=== PATIENT | male | born 1970 | race Caucasian/White ===

== ENCOUNTER → 2017-09-05 | Outpatient (CLI) | payer OTHER ==
[~2017-09-05] MED LIST: ACET-24 PO; ACET1TAB84 PO; ACETAMINOPHEN 500 MG TAB PO SCH; ALL300 PO; AMLO-110 PO; BUPIVACAINE 0.5 % 5 MG/1 ML PF 10ML VIAL ONE; CALC600T37 PO; CEFAZOLIN 3000MG IV PUSH 22.5 ML IV SCH; CHECK SCOPOLAMINE PATCH PLACEMENT SCH; CHOL20007 PO; CYAN10005 PO; FAMOTIDINE 20 MG TAB PO SCH; FRRG PO; GABAPENTIN 900 MG PO SCH; INDO-22 PO; LACTATED RINGER'S 1000ML 1,000 ML IV SCH; LACTATED RINGER'S 1000ML 500 ML IV SCH; LACTATED RINGER'S 1000ML IV SCH; METOCLOPRAMIDE HCL 10 MG TAB PO SCH; MULT-1027 PO; NXM/40 PO; PEDI-68 PO; RXC5 PO; SCOPOLAMINE 1.5 MG TDSY TD SCH; TRAM-10 PO; XRL10 PO
[2017-09-05 09:39] VITALS: BMI 31.0
--- NOTE | 2017-09-05 10:54 | DIAGNOSTIC IMAGING REPORT ---
TWO VIEW CHEST CLINICAL HISTORY: Preoperative examination. FINDINGS: PA and lateral chest radiographs are obtained. No prior studies are available for comparison at the time of dictation. The cardiomediastinal silhouette is unremarkable. The lungs and pleural spaces are clear. There is no pneumothorax. The bony thorax appears intact. IMPRESSION: No active disease in the chest. Electronically signed by: Ankit Hoyos M.D. 09/05/2017 10:53 AM Dictated Date/Time: 09/05/2017 10:53 AM
[2017-09-05 12:09] LABS: BASO % 0.5 %; BASO ABS # 0.03 K/uL (0-0.2); EOS % 2.6 %; EOS ABS # 0.15 K/uL (0-0.5); HEMATOCRIT 45.1 % (42-52); HEMOGLOBIN 15.3 g/dL (14.0-18.0); IG# 0.01 K/uL (0.00-0.02); LYMPH % 30.2 %; LYMPH ABS # 1.75 K/uL (1.2-3.4); MEAN CELL VOLUME 92.6 fL (80-100); MEAN CORPUSCULAR HEMOGLOBIN 31.4 pg (25-34); MEAN CORPUSCULAR HGB CONC 33.9 g/dl (32-36); MEAN PLATELET VOLUME 12.4 fL (7.4-10.4); MONO ABS # 0.35 K/uL (0.11-0.59); NEUT % 60.5 %; NEUT ABS # 3.51 K/uL (1.4-6.5); PLATELET COUNT 165 K/uL (130-400); RED CELL DISTRIBUTION WIDTH CV 13.7 % (11.5-14.5); RED CELL DISTRIBUTION WIDTH SD 46.7 fL (36.4-46.3)
[2017-09-05 12:16] LABS: BLOOD UREA NITROGEN 16 mg/dl (7-18); CALCIUM 9.4 mg/dl (8.5-10.1); CARBON DIOXIDE 29 mmol/L (21-32); CREATININE 1.03 mg/dl (0.60-1.40); GLUCOSE 85 mg/dl (70-99); POTASSIUM 4.6 mmol/L (3.5-5.1); SODIUM 141 mmol/L (136-145)
[2017-09-05 12:18] LABS: INR 1.1 (0.9-1.1); PTT PATIENT 27.3 SECONDS (21.0-31.0)
== END | disposition home or self-care (01) ==
LOC: C.LAB 08:00 → EDSTATUS 10-04 10:51
PROVIDERS: ATTEND Orthopaedic Surgery Sports Medicine
DX: Z01.810 Encounter for preprocedural cardiovascular examination (principal); Z01.811 Encounter for preprocedural respiratory examination; Z01.812 Encounter for preprocedural laboratory examination; R00.1 Bradycardia, unspecified

== ENCOUNTER 2017-10-04 10:24 | Inpatient (IN) | payer OTHER ==
[2017-09-05 09:39] VITALS: BMI 31.0
--- NOTE | 2017-09-05 10:10 | PAT Medication Instructions ---
Service Date Sep 05, 2017. Current Home Medication List Acetaminophen (Tylenol Arthritis Ext Rel), 2 TAB PO BID PRN for Pain Allopurinol (Allopurinol), 1 TAB PO QAM Amlodipine (Norvasc), 5 MG PO QAM Calcium (Calcium), 1 TAB PO BID Cholecalciferol (Vitamin D3), 1 TAB PO HS Cyanocobalamin (Vitamin B-12), 1,000 MCG PO QAM Esomeprazole Magnesium (Nexium), 40 MG PO QAM Multiple Vitamin (Multi Vitamin), 1 TAB PO QAM Tramadol (Ultram), 100 MG PO BID PRN for Pain Medication Instructions For Your Scheduled Surgery - Hold the following medications the morning of surgery: Cyanocobalamin (Vitamin B-12), 1,000 MCG PO QAM Multiple Vitamin (Multi Vitamin), 1 TAB PO QAM Calcium (Calcium), 1 TAB PO BID - Take the following medications the morning of surgery with a sip of water: Esomeprazole Magnesium (Nexium), 40 MG PO QAM Acetaminophen (Tylenol Arthritis Ext Rel), 2 TAB PO BID PRN for Pain (if needed , can be taken up to four hours before surgery) Allopurinol (Allopurinol), 1 TAB PO QAM Amlodipine (Norvasc), 5 MG PO QAM Tramadol (Ultram), 100 MG PO BID PRN for Pain (if needed, can be taken up to four hours before surgery) - Take the following medications as scheduled the night before surgery: Calcium (Calcium), 1 TAB PO BID Cholecalciferol (Vitamin D3), 1 TAB PO HS Tramadol (Ultram), 100 MG PO BID PRN for Pain (if needed, can be taken up to four hours before surgery) Acetaminophen (Tylenol Arthritis Ext Rel), 2 TAB PO BID PRN for Pain (if needed , can be taken up to four hours before surgery) If you have any questions please call us at [phone] or [phone] or [phone]
--- NOTE | 2017-10-01 19:11 | HISTORY & PHYSICAL EXAMINATION ---
DATE OF ADMISSION: 10/04/2017 CHIEF COMPLAINT: Bilateral hip pain, left side greater than right. 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 He has got a long history of bilateral hip pain and discomfort, left side greater than right. He has been through extensive conservative treatment including intraarticular hip joint injection. He used to be an obese gentleman, weighing 400+ pounds, but had gastric bypass surgery and has lost at least 100 pounds. He has continued to be debilitated by his hip pain and discomfort. His walking tolerance is limited. He cannot put his shoes and socks on. He limps with every step. The more he walks, the more he hurts. HE CANNOT TAKE NSAIDS DUE TO HIS GASTRIC BYPASS SURGERY. He has been actually taking Percocet and tramadol and controlling the pain. He would now like to proceed with surgical treatment. PAST MEDICAL HISTORY: 1. Diabetes. 2. Hypertension. 3. Elevated cholesterol. 4. Peptic ulcer disease. 5. Obesity, status post gastric bypass surgery with current BMI of 32. 6. Sleep apnea with CPAP machine. 7. Low back pain, status post 2 back surgeries. 8. Gastroesophageal reflux disease. 9. Gout. PREVIOUS SURGERIES: Include: 1. Gastric bypass surgery 5 months ago. 2. Back surgery x2. ALLERGIES: PENICILLIN. CURRENT MEDICINES: Include: 1. Norvasc 5 mg. 2. Percocet twice a day. 3. Nexium 40 mg. 4. Celexa 40 mg. 5. Tramadol 50 mg twice a day. 6. Allopurinol once a day. 7. Multivitamin. 8. Vitamin D3. 9. Vitamin B12. 10. Calcium. SOCIAL HISTORY: A 46-year-old male patient from [place]. 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 FAMILY HISTORY: Significant for diabetes, prostate cancer, leukemia. REVIEW OF SYSTEMS: Significant for diabetes. He has lost 150 pounds over the past year and a half. No chest pain or shortness of breath. No history of DVT or PE. No known clotting disorders. PHYSICAL EXAMINATION: GENERAL: Reveals a pleasant, healthy-appearing male. Looks to be in relatively good health. HEENT: Benign. NECK: Supple. No lymphadenopathy. LUNGS: Clear to auscultation. HEART: Has a regular rate and rhythm. ABDOMEN: Soft, nontender, nondistended. EXTREMITIES: Grossly neurovascularly intact except as follows: Examination of the left leg reveals the patient walks with an antalgic limp. Clearly limps on his left side. Leg lengths clinically look pretty equal but they are pretty stiff with some flexion contracture which makes leg length assessment a bit difficult. Hip is very stiff with internal rotation to -20 degrees, external rotation contracture. He cannot flex his hip to 90 degrees. He is neurologically intact. X-RAYS: X-rays of the left hip reveal advanced DJD. He has got complete loss of his joint space. He has got extensive osteophytes around the femoral head and acetabulum. Bone density looks good. ASSESSMENT: A 46-year-old male, previously morbidly obese, status post gastric bypass surgery, with advanced bilateral hip degenerative joint disease, left side worse than right. He has failed conservative treatment and would like to have his left hip replaced. PLAN: We are going to take him to the operating room and do left total hip replacement. The risks and benefits of this procedure were explained to the patient including but not limited to DVT, PE, , infection, neurologic injury, vascular injury, bleeding problem, pain, limited range of motion, stiffness, failure to relieve symptoms, incomplete relief of symptoms, need for further surgery in the future, fracture, leg length inequality, nerve palsy, dislocation, need for revision surgery, etc. The patient understands and desires to proceed. Informed consent was obtained. He knows that this is young age, this might wear out over time, might need to be redone. THE PATIENT CANNOT TAKE NSAIDS OR ASPIRIN. For DVT prophylaxis, we will likely use Xarelto. We did try and talk about limiting his narcotic use before surgery. He should be able to be discharged to home using [facility] home health program.
[2017-10-04] VITALS (13 sets, daily range): BP systolic 98–134; BP diastolic 62–86; PULSE 50–100; TEMP 36.4–36.8; O2SAT 97–100; Ht 198.1 cm; Wt 124.7 kg
[~2017-10-04] VITALS: Ht 198.1 cm; Wt 124.7 kg
[~2017-10-04 10:24] MED LIST changes: -ACET-24 PO; +ATROPINE SULFATE 0.1 MG/ML 5ML SYR IV PRN; -BUPIVACAINE 0.5 % 5 MG/1 ML PF 10ML VIAL ONE; -CHECK SCOPOLAMINE PATCH PLACEMENT SCH; +EpHEDrine SULFATE INJ 50 MG/ML AMP IV PRN; -FRRG PO; +HYDROmorphone INJ 2 MG/ML SYR/VIAL IV PRN; -INDO-22 PO; -LACTATED RINGER'S 1000ML 1,000 ML IV SCH; -LACTATED RINGER'S 1000ML 500 ML IV SCH; -LACTATED RINGER'S 1000ML IV SCH; +ONDANSETRON INJ 2 MG/ML 2 ML VIAL IV PRN; -PEDI-68 PO; +PHENYLEPHRINE 100MCG/ML 5ML SYR IV PRN; -RXC5 PO; -XRL10 PO
[2017-10-04] MEDS ORDERED: ONDANSETRON INJ 2 MG/ML 2 ML VIAL IV PRN ×3 (10:45→17:45)
[2017-10-04] MEDS ORDERED: ATROPINE SULFATE 0.1 MG/ML 5ML SYR IV PRN (10:46)
[2017-10-04] MEDS ORDERED: EpHEDrine SULFATE INJ 50 MG/ML AMP IV PRN ×2 (10:50→17:45)
[2017-10-04] MEDS ORDERED: HYDROmorphone INJ 2 MG/ML SYR/VIAL IV PRN (10:50)
[2017-10-04] MEDS ORDERED: PHENYLEPHRINE 100MCG/ML 5ML SYR IV PRN (10:50)
--- NOTE | 2017-10-04 11:14 | History & Physical Bridge Note ---
H&P Re-Evaluation Bridge Note: I have examined the patient, reviewed the History & Physical and in the interval since the performance of the History & Physical I have noted the following changes of clinical significance: No changes noted
[2017-10-04] MEDS ORDERED: LACTATED RINGER'S 1000ML IV SCH (11:30)
[2017-10-04] MEDS ORDERED: LACTATED RINGER'S 1000ML 1,000 ML IV SCH (11:30)
[2017-10-04] MEDS ORDERED: LACTATED RINGER'S 1000ML 500 ML IV SCH (11:45)
[2017-10-04] MEDS ORDERED: MIDAZOLAM HCL 1 MG/ML 2ML VIAL ONE ×3 (12:27→12:59)
[2017-10-04] MEDS ORDERED: MoRPHine SULFATE PF 1 MG/ML 10 ML AMP/VIAL ONE (12:59)
[2017-10-04] MEDS ORDERED: BACITRACIN 50000 UNIT VIAL ONE (13:06)
[2017-10-04] MEDS ORDERED: BUPIVACAINE/EPINEPHRINE 0.5% MPF 1:200,000 30 ML VIAL ONE (13:06)
[2017-10-04] MEDS ORDERED: ONDANSETRON INJ 2 MG/ML 2 ML VIAL ONE (14:02)
[2017-10-04] MEDS ORDERED: LIDOCAINE HCL 2% 2 ML VIAL (20MG/ML) ONE (14:02)
[2017-10-04] MEDS ORDERED: PROPOFOL IV EMULSION 10 MG/ML 20 ML VIAL IV ONE (14:06)
[2017-10-04] MEDS ORDERED: EpHEDrine SULFATE 50MG/5ML SYR ONE (15:10)
--- NOTE | 2017-10-04 15:21 | [facility] Post Operative Brief Note ---
Immediate Operative Summary Operative Date Oct 04, 2017. Pre-Operative Diagnosis Degenerative Joint Disease, Left Hip Post-Operative Diagnosis same as pre-operative Procedure(s) Performed Left Total Hip Arthroplasty, uncemented Surgeon Dr. Tejinder Gamez Tobacco Dipper Surgeon(s) Chris Last PA-C Estimated Blood Loss 300mL Findings Consistent with Post-Op Diagnosis Fluids (cc crystalloids) 1900 cc Specimens Permanent: A. Left Femoral Head Drains None Anesthesia Type Spinal MAC Complication(s) none Disposition Accompanied Pt To Recover: yes Disposition: Recovery Room / PACU
[2017-10-04] MEDS ORDERED: SILVER SULFADIAZINE 1% CR 50 GM JAR EXT PRN (15:30)
[2017-10-04] MEDS ORDERED: ZOLPIDEM TARTRATE 5 MG TAB PO PRN (15:30)
[2017-10-04] MEDS ORDERED: DiphenhydrAMINE HCL 50 MG/ML VIAL IV PRN ×2 (15:30→17:45)
[2017-10-04] MEDS ORDERED: METOCLOPRAMIDE HCL INJ 5 MG/ML 2 ML VIAL IV PRN (15:30)
[2017-10-04] MEDS ORDERED: MAGNESIUM HYDROXIDE SUSP 30 ML UDC PO PRN (15:30)
[2017-10-04] MEDS ORDERED: ALUMINUM/MAGNESIUM/SIMETH (MAALOX MAX) 30 ML UDC PO PRN (15:30)
[2017-10-04] MEDS ORDERED: OXYCODONE HCL IR 5 MG TAB (IMMEDIATE RELEASE) PO PRN (15:30)
[2017-10-04] MEDS ORDERED: BISACODYL 10 MG SUPP PR PRN (15:30)
[2017-10-04] MEDS ORDERED: MoRPHine SULFATE 2 MG/ML CARP IV PRN ×2 (15:30→17:45)
[2017-10-04] MEDS ORDERED: TAMSULOSIN HCL 0.4 MG CAP PO PRN (15:30)
--- NOTE | 2017-10-04 15:46 | Anesthesiology Progress Note ---
Anesthesia Post Op Note Date & Time Oct 04, 2017 at 15:46 Vital Signs Pain Intensity: 0 Vital Signs Past 12 Hours Date Time Temp Pulse Resp B/P (MAP) Pulse Ox O2 Delivery O2 Flow Rate FiO2 10/04/17 15:40 69 16 114/70 100 Nasal Cannula 2 10/04/17 15:30 51 16 113/72 100 Nasal Cannula 2 10/04/17 15:23 36.8 55 16 118/70 100 Oxymask 5 10/04/17 10:57 36.7 64 18 134/86 97 Room Air Notes Mental Status: alert / awake / arousable, participated in evaluation Pt Amnestic to Procedure: Yes Nausea / Vomiting: adequately controlled Pain: adequately controlled Airway Patency, RR, SpO2: stable & adequate BP & HR: stable & adequate Hydration State: stable & adequate Neuraxial Anesthesia: was administered, sensory block is resolving Anesthetic Complications: no major complications apparent
--- NOTE | 2017-10-04 15:59 | DIAGNOSTIC IMAGING REPORT ---
AP PELVIS AND LEFT HIP 4 VIEWS CLINICAL HISTORY: Postop hip arthroplasty COMPARISON STUDY: Outside radiograph dated 04/28/2017 FINDINGS: There are postsurgical changes of a total left hip arthroplasty. There is no dislocation. There are no acute fractures. There is air within the soft tissues consistent with recent surgery. Overlying skin zeinab are visualized. IMPRESSION: Postsurgical changes of a total left hip arthroplasty Electronically signed by: Forrest Mcneil M.D. 10/04/2017 3:58 PM Dictated Date/Time: 10/04/2017 3:57 PM
[2017-10-04] MEDS: CHECK SCOPOLAMINE PATCH PLACEMENT SCH (16:00)
[2017-10-04] MEDS ORDERED: NALOXONE HCL INJ 1 MG in SODIUM CHLORIDE 0.9% 1000ML 1,000 ML IV PRN (17:37)
[2017-10-04] MEDS ORDERED: LACTATED RINGER'S 1000ML 500 ML IV PRN (17:37)
[2017-10-04] MEDS ORDERED: NALOXONE HCL INJ 0.08 MG in SYRINGE 1.8 ML IV PRN (17:37)
[2017-10-04] MEDS ORDERED: SODIUM CHLORIDE 0.9% 1000ML 1,000 ML IV PRN (17:37)
[2017-10-04] MEDS ORDERED: NALOXONE HCL 0.4 MG/1 ML VIAL/CARP IV PRN (17:45)
[2017-10-04] MEDS ORDERED: NO NARCOTICS OR SEDATIVES SCH (17:45)
[2017-10-04] MEDS ORDERED: MoRPHine SULFATE PF 1 MG/ML 10 ML AMP/VIAL INT SPINAL PRN (17:45)
[2017-10-04] MEDS ORDERED: MEPERIDINE HCL 25 MG/ML CARP IV PRN (17:45)
[2017-10-04] MEDS ORDERED: NALBUPHINE HCL INJ 10 MG/ML AMP IV PRN (17:45)
--- NOTE | 2017-10-04 17:45 | PROGRESS NOTE ---
DATE: 10/04/2017 SUBJECTIVE: This is a 47-year-old gentleman postop from a left total hip replacement. He is doing well. Not having any pain yet. No chest pain or shortness of breath. Not feeling dizzy or lightheaded. OBJECTIVE: VITAL SIGNS: Temperature 36.4. Vital signs stable. GENERAL: Reveals a healthy, pleasant, middle-aged male. He is sitting up in bed, looks completely comfortable. He is talking to his family. LUNGS: Clear to auscultation. HEART: Regular rate and rhythm. ABDOMEN: Soft, nontender, nondistended. EXTREMITIES: Grossly neurovascularly intact except as follows: Examination of the left lower extremity reveals the leg to be well aligned. Hip is located. He can dorsiflex and plantarflex his foot appropriately. He is neurologically intact. IMAGING DATA: X-ray of left hip from recovery room reviewed. Shows left uncemented total hip arthroplasty. Components are in good position. No signs of problems. ASSESSMENT: A 47-year-old gentleman postoperative from a left total hip replacement, doing well. He had extensive excess bone formed. He is doing well. Hip is located. He is neurologically intact. PLAN: 1. DVT prophylaxis including thigh-high TEDs, SCDs, and Xarelto as he cannot take aspirin. 2. PT/OT. Weightbear as tolerated. Left total hip protocol. 3. Pain control, doing well with current pain regimen. 4. IV antibiotics x24 hours. 5. A heterotopic bone ossification prophylaxis. We are going to try and put him on some Toradol initially and then Indocin for 4-6 weeks. If he gets any stomach discomfort, he will let us know and will stop this. I know there is a risk from the GI standpoint, but I think the benefits outweigh the risks at this point. At his young age, I think he can likely tolerate it for a brief period of time. I discussed this with him and he agrees. 6. Disposition: Plan to discharge to home with home health once adequately recovered. ELIZABETH
[2017-10-04] MEDS: D5W AND 1/2NSS + 20MEQ KCL 1,000 ML IV SCH (18:05)
--- NOTE | 2017-10-04 18:09 | OPERATIVE REPORT ---
DATE OF OPERATION: 10/04/2017 SURGEON: Tejinder Gamez MD DIRECTOR OF INSTITUTIONAL SALES: VERN Hinojosa PREOPERATIVE DIAGNOSIS: Advanced left hip degenerative joint disease. POSTOPERATIVE DIAGNOSIS: Same. PROCEDURE PERFORMED: Left ceramic on highly cross-linked polyethylene uncemented total hip arthroplasty. COMPLICATIONS: None. ESTIMATED BLOOD LOSS: 300 mL. FLUID REPLACEMENT: 1900 mL crystalloid fluid replacement. ANESTHESIA: Spinal. DRAINS: None. SPECIMENS: Left femoral head sent for pathology. Also, multiple loose bodies sent for pathology. OPERATIVE INDICATIONS: The patient is a 47-year-old gentleman who has had a long history of bilateral hip pain and discomfort, left side a bit worse than right. He has been through extensive conservative treatment without relief. Over the years, he developed a marked stiffness in both hips to the point where he cannot put his shoes and socks on. He had a significant flexion and abduction contractures and external rotation contracture of his hip. X-rays showed advanced hip DJD with destruction of the femoral head and flattening of the femoral head, as well as excessive extra bone formed. The patient elected to proceed with operative treatment. Of note, the patient was in the past quite obese, but had recent gastric bypass surgery and lost alot of weight. OPERATIVE FINDINGS: Operative findings revealed extensive diffuse grade 4 changes of the femoral head and acetabulum. He had a very oblong appearance of the femoral head and no longer spherical. He had large osteophytes around the acetabulum, both medially, anteriorly and posteriorly as well as around the femoral head. He had extremely stiff hip with external rotation contracture of at least 15-20 degrees. He had multiple loose bodies throughout the hip joint as well which were removed. OPERATIVE IMPLANTS: Operative implants consists of: 1. A Biomet G7 size 58-mm acetabular shell. 2. A 6.5 cancellous acetabular screws, 1 at 35 mm length and 125 mm length. 3. An apex hole eliminator. 4. A Biomet vitamin E enriched highly cross-linked polyethylene liner with 58 mm outer diameter, 36 inner diameter. 5. A DePuy size 13.5 large stature high offset femoral stem. 6. A +5/36 mm ceramic articular ball. OPERATIVE PROCEDURE: The patient taken to the operating room, identified and was placed in the operating table in supine position. All contact areas were appropriately padded. IV antibiotics were provided by the anesthesia team. A spinal anesthetic had been implemented in the holding area. Cornejo catheter was placed in sterile fashion. The patient was then placed in the right lateral decubitus position. An axillary roll was placed. Stlberg hip positioner was used for positioning. Left hip and leg were then prepped and draped in usual sterile fashion. A posterolateral approach to the left hip was then performed through a curvilinear incision centered over the greater trochanter. Sharp dissection was carried through subcutaneous tissue down to the level of the IT band and gluteal fascia. The IT band and gluteal fascia were then incised longitudinally in line with the skin incision. The underlying greater trochanteric bursa was excised. The piriformis and external rotators were tagged and taken off the posterior aspect of the hip joint. Great care was taken throughout the procedure to protect the sciatic nerve at all times. I then released the posterior capsule. This was quite difficult with external rotation contracture, but we very carefully released the posterior capsule off the posterior aspect of the hip joint. Hip was then internally rotated and dislocated. Femoral neck osteotomy cut was made with final cut 15 mm above the lesser trochanter. Femoral head was removed and sent for pathology. The femur was retracted anteriorly. I did have to release some of the anterior capsular structures in order to mobilize the hip anteriorly. The pulvinar fat was excised. The labrum was excised. Attention was then drawn to the acetabulum. Sequential reaming of the acetabulum was then performed using a size 51 and progressing up to a 57. A 58 mm G7 acetabular shell was then placed in about 40 degrees of lateral opening and 20 degrees of anteversion. It was fixed with two 6.5 cancellous acetabular screws. Some large osteophytes anterior, posterior and inferior were removed. These were very large osteophytes. A trial liner was placed. Attention was then drawn to the femur. The proximal femur was entered with followed by canal finder and lateralizing reamer. Sequential reaming of the femur was a 4 medial size, 9 and progressing up to 13. We got pretty good chatter at 13. I broached to a size 10.5 small broach and progressing up to a 13.5 large broach. We then trialed the hip. Clearly, he needed additional offset trough medialization of the cup. We trialed the hip and the +5 articular ball, seemed to recreate leg lengths are pretty equal and it was fully stable in full extension and external rotation and flexion to 90 degrees, internal rotation to 50+ degrees. We elected to place these implants. All trial implants were removed. An apex hole eliminator was placed. A vitamin E enriched highly cross-linked polyethylene liner was placed. A +5/36 mm ceramic articular ball was placed into hip. Hip was located and once again found to be stable. Attention was then drawn toward closing. The wound was irrigated with copious amounts of pulsatile lavage solution. I did inject locally with 60 mL of 0.5% Marcaine with epinephrine. The posterior capsule and external rotators were then repaired through drill holes in the posterior trochanter. The IT band and gluteal fascia were then closed with #1 PDS suture in running fashion and subcutaneous tissues then closed with 2 layers, the deep layer #1 Vicryl suture and subcutaneous tissues with 2-0 Dexon suture in a buried interrupted fashion. The skin was then closed with skin zeinab. Leg was then cleaned and dried and a sterile dressing of Xeroform, 4 x 4, sterile ABD pad and foam tape was applied. The patient did receive some Toradol at the end of the case for a heterotopic bone prophylaxis. The patient then transferred to the recovery room in stable condition. The patient tolerated this well with no complications. All needle and sponge counts were correct at the end of the operation. I attest to the content of the Intraoperative Record and any orders documented therein. Any exceptions are noted below. ENRIQUED
[2017-10-04] MEDS: KETOROLAC TROMETHAMINE 30 MG/ML VIAL IV. SCH (19:14)
[2017-10-04] MEDS: ACETAMINOPHEN 500 MG TAB PO SCH (19:14)
[2017-10-04] MEDS: FERROUS GLUCONATE 324 MG TAB PO SCH (19:14)
[2017-10-04] MEDS ORDERED: CEFAZOLIN IV 2,000 MG in DEXTROSE 5% 50ML 50 ML IV SCH (21:30)
[2017-10-04] MEDS ORDERED: TRANEXAMIC ACID INJ 1,000 MG in SODIUM CHLORIDE 0.9% 100ML 100 ML IV ONE (21:30)
[2017-10-04] MEDS: CALCIUM 600MG + VIT D 400 IU TAB PO SCH (21:45)
[2017-10-04] MEDS: CHOLECALCIFEROL 1000 INTER.UNIT TAB PO SCH (21:45)
[2017-10-04] MEDS: DOCUSATE SODIUM 100 MG CAP PO SCH (21:45)
[2017-10-04] MEDS: CEFAZOLIN IV 2,000 MG in SYRINGE 0 ML IV SCH (21:45)
[2017-10-04] MEDS: SENNA 8.6 MG TAB PO SCH (21:45)
[2017-10-05] VITALS (17 sets, daily range): BP systolic 77–114; BP diastolic 44–72; PULSE 60–115; TEMP 36.5–36.9; O2SAT 97–100
[2017-10-05] MEDS: CHECK SCOPOLAMINE PATCH PLACEMENT SCH ×3 (00:08→15:40)
[2017-10-05] MEDS: D5W AND 1/2NSS + 20MEQ KCL 1,000 ML IV SCH ×3 (00:09→12:18)
[2017-10-05] MEDS: KETOROLAC TROMETHAMINE 30 MG/ML VIAL IV. SCH ×4 (00:09→17:38)
[2017-10-05] MEDS: ACETAMINOPHEN 500 MG TAB PO SCH ×3 (04:30→21:11)
[2017-10-05] MEDS: CEFAZOLIN IV 2,000 MG in SYRINGE 0 ML IV SCH (05:59)
[2017-10-05 06:23] LABS: BASO % 0.2 %; BASO ABS # 0.01 K/uL (0-0.2); EOS % 0.5 %; EOS ABS # 0.03 K/uL (0-0.5); HEMATOCRIT 32.9 % (42-52); HEMOGLOBIN 11.2 g/dL (14.0-18.0); IG# 0.01 K/uL (0.00-0.02); LYMPH ABS # 0.71 K/uL (1.2-3.4); MEAN CELL VOLUME 91.4 fL (80-100); MEAN CORPUSCULAR HEMOGLOBIN 31.1 pg (25-34); MONO % 8.8 %; MONO ABS # 0.48 K/uL (0.11-0.59); NEUT % 77.3 %; NEUT ABS # 4.23 K/uL (1.4-6.5); PLATELET COUNT 128 K/uL (130-400); RED CELL DISTRIBUTION WIDTH CV 13.7 % (11.5-14.5); RED CELL DISTRIBUTION WIDTH SD 45.2 fL (36.4-46.3); WHITE BLOOD COUNT 5.47 K/uL (4.8-10.8)
[2017-10-05] MEDS ORDERED: RXC5 PO (06:47)
[2017-10-05] MEDS ORDERED: ACET-24 PO (06:47)
[2017-10-05] MEDS ORDERED: XRL10 PO (06:47)
[2017-10-05] MEDS ORDERED: INDO-22 PO (06:47)
[2017-10-05] MEDS ORDERED: FRRG PO (06:47)
--- NOTE | 2017-10-05 06:49 | Discharge Instructions ---
Discharge Instructions Date of Service Oct 05, 2017. Admission Reason for Admission: Left Hip Degenerative Joint Disease Discharge Discharge Diagnosis / Problem: Left Hip Replacement Discharge Goals Goal(s): Decrease discomfort, Improve function, Increase independence, Improve disease control, Therapeutic intervention Activity Recommendations Activity Limitations: per Instructions/Follow-up section (Total Hip Precautions ) Weightbearing Status: Left weightbearing . Instructions / Follow-Up Instructions / Follow-Up ACTIVITY RECOMMENDATIONS: Physical Therapy: * Aggressive physical therapy is not usually needed. You will learn to take care of yourself safely and walk. * Follow the "Hip Precautions Instructions." * In some cases, the mental health social worker at the hospital will arrange to have a therapist come to your house for the first couple of weeks to help you learn these skills. * You need to practice on your own or with the help of a family member as needed. * When you learn these skills, most of the therapy can be done on your own. Home Exercise: * You were shown a series of exercises in the hospital. Do these exercises three to four times each day including the exercises you were shown in physical therapy. Walking: * Get up and walk several times each day. For the first four weeks, try not to stand or walk for more than one hour at a time. If you do stand or walk for more than one hour, you will not hurt anything, but your leg will likely swell. * As you feel comfortable, you may change from the walker or crutches to a cane and then to independent walking. MEDICATIONS: New Medicine: * You will likely be taking one or more of these medicines: 1. Oxycodone - Take, as directed, when you need it, every four to six hours to control your pain. 2. Iron Sulfate - Take two times each day for the month after surgery to help you replace the blood lost during surgery. 3. Xarelto - Thins your blood to lessen the chance of forming a blood clot. * The most common side effects of pain medicine and iron are nausea and constipation. If nausea or constipation is too much of a problem or if you have any questions about your new medicines or doses, call [facility] at . We will try to help you manage these issues. VERY IMPORTANT TO READ AND REVIEW" Pain: * The immediate post-operative period after hip replacement surgery is often quite painful. * You are given a prescription for pain medicine. You should take it, as directed, when you need it, especially before physical therapy and before going to bed. Pain that interferes with sleep is very common and can last several months. * You will likely need pain medicine for the first two to four weeks. It will not stop all of the pain. The pain will lessen and as you feel better, you may change to milder pain medicine such as Tylenol. * The most common side effects of pain medicine are nausea and constipation, so don't take more than you need. SPECIAL CARE INSTRUCTIONS: TEDs/Elastic Stockings: * The white elastic stockings help limit swelling and prevent blood clots from forming in your legs. The more you wear them, the more they work. * Wear them for six weeks. Prevention of Infection: * Take antibiotics one hour before any dental cleaning, dental work, urological procedure, gastrointestinal procedure or any invasive surgery in order to prevent your new joint from getting infected. * You may get the antibiotics from the doctor performing the procedure or you may call our office at before and we will call in a prescription to the pharmacy of your choice. Things to Watch For: * Drainage from the incision site that occurs more than one week after your surgery. * Severely increased leg pain or swelling. * Increased redness at the incision site. * Fever above 102 degrees Fahrenheit. * Unusual chest pain or shortness of breath. * Unusual pain or burning with urination. Call [facility] at with any of the above problems or if you have any questions about your medicines or recovery. FOLLOW UP VISIT: Make an appointment to see your doctor for approximately two weeks after surgery for a progress check and staple removal by calling the office at . Current Hospital Diet Patient's current hospital diet: Regular Diet Discharge Diet Recommended Diet: Regular Diet Procedures Procedures Performed: Left Total Hip Arthroplasty, uncemented Pending Studies Studies pending at discharge: no Medical Emergencies . Who to Call and When: Medical Emergencies: If at any time you feel your situation is an emergency, please call [phone] immediately. . Non-Emergent Contact Non-Emergency issues call your: Surgeon . "Provider Documentation" section prepared by Tejinder Gamez. . VTE Core Measure Inpt VTE Proph given/why not?: Other Anticoagulation, T.E.D. Stockings, SCD's
[2017-10-05 06:59] LABS: CALCIUM 8.3 mg/dl (8.5-10.1); CREATININE 1.13 mg/dl (0.60-1.40); POTASSIUM 4.2 mmol/L (3.5-5.1)
--- NOTE | 2017-10-05 08:05 | Anesthesiology Progress Note ---
Anesthesia Post Op Note Date & Time Oct 05, 2017 at 08:05 Vital Signs Pain Intensity: 4.0 Vital Signs Past 12 Hours Date Time Temp Pulse Resp B/P (MAP) Pulse Ox O2 Delivery O2 Flow Rate FiO2 10/05/17 07:48 36.9 70 16 95/59 (71) 97 Room Air 10/05/17 07:20 98 Room Air 10/05/17 07:00 20 98 10/05/17 06:10 18 98 Room Air 10/05/17 05:12 20 98 10/05/17 04:10 16 100 Room Air 10/05/17 03:33 36.5 60 16 94/58 (70) 97 Room Air 10/05/17 03:10 16 98 10/05/17 02:10 16 100 Room Air 10/05/17 00:10 Room Air 10/05/17 00:10 16 99 10/04/17 23:24 36.7 61 16 98/62 (74) 99 Room Air 10/04/17 23:10 18 97 10/04/17 22:10 18 100 10/04/17 21:10 18 97 10/04/17 20:10 18 100 Notes Mental Status: alert / awake / arousable, participated in evaluation Pt Amnestic to Procedure: Yes Nausea / Vomiting: adequately controlled Pain: adequately controlled Airway Patency, RR, SpO2: stable & adequate BP & HR: stable & adequate Hydration State: stable & adequate Neuraxial Anesthesia: was administered, sensory block resolved Anesthetic Complications: no major complications apparent
[2017-10-05] MEDS: AMLODIPINE BESYLATE 5 MG TAB PO SCH (08:54)
[2017-10-05] MEDS: MULTIVITAMIN TAB PO SCH (08:54)
[2017-10-05] MEDS: PANTOprazole SOD 40 MG TAB PO SCH (08:55)
[2017-10-05] MEDS: DOCUSATE SODIUM 100 MG CAP PO SCH ×2 (08:55→20:25)
[2017-10-05] MEDS: CALCIUM 600MG + VIT D 400 IU TAB PO SCH ×2 (08:55→20:25)
[2017-10-05] MEDS: FERROUS GLUCONATE 324 MG TAB PO SCH ×3 (08:56→17:37)
[2017-10-05] MEDS: ALLOPURINOL 300 MG TAB PO SCH (08:57)
[2017-10-05] MEDS: CYANOCOBALAMIN 500 MCG TAB (VIT B-12) PO SCH (08:57)
[2017-10-05] MEDS ORDERED: DC INTRASPINAL MORPHINE SCH (09:00)
[2017-10-05] MEDS ORDERED: MULTIVITAMIN TAB PO SCH (09:00)
[2017-10-05] MEDS: TAPENTADOL ER 50 MG TABCR PO SCH ×2 (09:00→21:00)
[2017-10-05] MEDS ORDERED: PANTOprazole SOD 40 MG TAB PO SCH (09:00)
[2017-10-05] MEDS: RIVAROXABAN 10 MG TAB PO SCH (15:39)
--- NOTE | 2017-10-05 20:37 | PROGRESS NOTE ---
DATE: 10/05/2017 SUBJECTIVE: A 47-year-old gentleman postop day #1 from a left total hip replacement. He is doing pretty well. He says it is just really sore. No chest pain or shortness of breath. Not feeling dizzy or lightheaded. OBJECTIVE: VITAL SIGNS: Temperature 36.9. Vital signs stable. GENERAL: Reveals a pleasant, middle-aged male. He was just getting out of bed when I visited him this afternoon. EXTREMITIES: Examination of the left hip reveals the dressing to be clean, dry and intact. Hip is located. He can dorsiflex and plantarflex his foot appropriately. NEUROLOGICAL: He is neurologically intact. LABORATORY DATA: Hemoglobin is 11.2, hematocrit 32.9. Electrolytes are stable. ASSESSMENT: A 47-year-old gentleman postop day #1 from a left total hip replacement, doing well. Pretty complex surgery with a lot of bone excised. PLAN: 1. DVT prophylaxis including thigh-high TEDs, SCDs, and he is starting on Xarelto 24 hours postop. 2. PT/OT. Weightbear as tolerated. Left total hip protocol. 3. Pain control. Doing reasonably well with current pain regimen. 4. Heterotopic bone prophylaxis. We are going to treat him with some Indocin after the Toradol expires. If he has any GI discomfort, will stop. 5. Disposition: Plan to discharge to home with some home health once adequately recovered.
[2017-10-05] MEDS: CHOLECALCIFEROL 1000 INTER.UNIT TAB PO SCH (21:12)
[2017-10-05] MEDS: SENNA 8.6 MG TAB PO SCH (21:12)
[2017-10-06] MEDS: KETOROLAC TROMETHAMINE 30 MG/ML VIAL IV. SCH ×2 (00:05→05:52)
[2017-10-06] MEDS: CHECK SCOPOLAMINE PATCH PLACEMENT SCH ×2 (00:05→08:28)
[2017-10-06] MEDS: ACETAMINOPHEN 500 MG TAB PO SCH (04:16)
[2017-10-06 07:09] VITALS: BP 130/79; PULSE 95; TEMP 36.4; O2SAT 100
--- NOTE | 2017-10-06 07:54 | PROGRESS NOTE ---
DATE: 10/06/2017 SUBJECTIVE: A 47-year-old gentleman postop day #2 from a left total hip replacement. He is doing well. Pain is controlled. He describes mostly just soreness. No chest pain or shortness of breath. Not feeling dizzy or lightheaded. OBJECTIVE: VITAL SIGNS: Temperature 36.4. Vital signs stable. GENERAL: Physical examination reveals a pleasant, middle-aged male. I visited with him when he is walking the hallways this morning. EXTREMITIES: Examination of left hip reveals the incision to be clean, dry and intact. Some mild swelling. No drainage. His hip is located. He is neurologically intact. ASSESSMENT: A 47-year-old gentleman postop day #2 from a left total hip replacement and extensive heterotopic bone resection, doing well. PLAN: 1. DVT prophylaxis including thigh-high TEDs, SCDs, and Xarelto for 30 days. 2. PT/OT. Weightbear as tolerated. Left total hip protocol. 3. Pain control, doing well with current pain regimen. 4. Heterotopic bone prophylaxis. We are going to put him on Indocin. If he has any GI problems, he will let us know. 5. Disposition: Plan to discharge to home with some home health later today.
[2017-10-06 08:35] VITALS: BP 130/79; PULSE 95; TEMP 36.4; O2SAT 100
[2017-10-06] MEDS: DOCUSATE SODIUM 100 MG CAP PO SCH (09:00)
[2017-10-06] MEDS: FERROUS GLUCONATE 324 MG TAB PO SCH (09:02)
[2017-10-06] MEDS: CYANOCOBALAMIN 500 MCG TAB (VIT B-12) PO SCH (09:02)
[2017-10-06] MEDS: PANTOprazole SOD 40 MG TAB PO SCH (09:02)
[2017-10-06] MEDS: MULTIVITAMIN TAB PO SCH (09:02)
[2017-10-06] MEDS: AMLODIPINE BESYLATE 5 MG TAB PO SCH (09:03)
[2017-10-06] MEDS: ALLOPURINOL 300 MG TAB PO SCH (09:03)
[2017-10-06] MEDS: TAPENTADOL ER 50 MG TABCR PO SCH (09:11)
[2017-10-06] MEDS: RIVAROXABAN 10 MG TAB PO SCH (10:21)
[2017-10-06] MEDS: CALCIUM 600MG + VIT D 400 IU TAB PO SCH (10:21)
== END 2017-10-06 11:15 | disposition home health service (06) | DRG 470 ==
LOC: C.ACU 10:24 → C.3E 10:46 → ENRESERV 15:48
PROVIDERS: ADMIT Orthopaedic Surgery Sports Medicine; ATTEND Orthopaedic Surgery Sports Medicine
PROC: 0SRB04A Replacement of Left Hip Joint with Ceramic on Polyethylene Synthetic Substitute, Uncemented, Open Approach (ICD-10-PCS; principal; 2017-10-04 13:00)
DX: M16.0 Bilateral primary osteoarthritis of hip (principal); M24.052 Loose body in left hip; Z98.84 Bariatric surgery status; E11.9 Type 2 diabetes mellitus without complications; I10 Essential (primary) hypertension; K21.9 Gastro-esophageal reflux disease without esophagitis; G47.30 Sleep apnea, unspecified; M10.9 Gout, unspecified; E66.9 Obesity, unspecified; Z79.899 Other long term (current) drug therapy; Z79.891 Long term (current) use of opiate analgesic; Z68.32 Body mass index [BMI] 32.0-32.9, adult; Z87.11 Personal history of peptic ulcer disease; Z88.0 Allergy status to penicillin; Z83.3 Family history of diabetes mellitus; Z80.6 Family history of leukemia; Z80.42 Family history of malignant neoplasm of prostate

== ENCOUNTER 2024-10-23 06:43 | Observation (INO) ==
--- NOTE | 2024-09-25 11:53 | PAT Medication Instructions ---
Medication Instructions Date of Service September 25, 2024 Home Medications allopurinol 300 mg tablet 300 mg PO QAM amlodipine 5 mg tablet 5 mg PO QAM calcium carbonate (Calcium 600) 600 mg PO DAILY cholecalciferol (vitamin D3) 125 mcg (5,000 unit) tablet (Vitamin D3) 125 mcg PO DAILY cyanocobalamin (vitamin B-12) 2,500 mcg tablet 2,500 mcg PO QAM pediatric multivitamin no.7-folic acid 100 mcg chewable tablet (Flintstones Tab Chew) 1 tab PO QAM quetiapine 25 mg tablet (Seroquel) 25 mg PO HS acetaminophen 650 mg tablet,extended release 650 mg PO Q8H PRN Pain duloxetine 30 mg capsule,delayed release 30 mg PO QAM duloxetine 60 mg capsule,delayed release 60 mg PO QAM gabapentin 300 mg capsule 300 mg PO BID irbesartan 300 mg-hydrochlorothiazide 12.5 mg tablet 1 tab PO QAM meclizine 25 mg tablet 25 mg PO DAILY PRN Vertigo meloxicam 7.5 mg tablet 7.5 mg PO .COMPLEX PRN Pain pantoprazole 40 mg tablet,delayed release 40 mg PO QAM buprenorphine 15 mcg/hour weekly transdermal patch 1 patch transdermal Q7D doxycycline monohydrate 100 mg tablet 100 mg PO BID PRN Other milk thistle 150 mg capsule 150 mg PO BID Continue as directed buprenorphine 15 mcg/hour weekly transdermal patch 1 patch transdermal Q7D (avoid placement near surgery site prior to surgery) doxycycline monohydrate 100 mg tablet 100 mg PO BID PRN Other (if needed) ASK your prescriber and surgeon meloxicam 7.5 mg tablet 7.5 mg PO .COMPLEX PRN Pain STOP taking 2 weeks before surgery (or as soon as possible if surgery is within 2 weeks) milk thistle 150 mg capsule 150 mg PO BID DO NOT take the morning of surgery calcium carbonate (Calcium 600) 600 mg PO DAILY cholecalciferol (vitamin D3) 125 mcg (5,000 unit) tablet (Vitamin D3) 125 mcg PO DAILY cyanocobalamin (vitamin B-12) 2,500 mcg tablet 2,500 mcg PO QAM pediatric multivitamin no.7-folic acid 100 mcg chewable tablet (Flintstones Tab Chew) 1 tab PO QAM irbesartan 300 mg-hydrochlorothiazide 12.5 mg tablet 1 tab PO QAM Take morning of surgery With a small sip of water, OTHERWISE NOTHING TO EAT OR DRINK AFTER MIDNIGHT: allopurinol 300 mg tablet 300 mg PO QAM amlodipine 5 mg tablet 5 mg PO QAM acetaminophen 650 mg tablet,extended release 650 mg PO Q8H PRN Pain (if needed) duloxetine 30 mg capsule,delayed release 30 mg PO QAM duloxetine 60 mg capsule,delayed release 60 mg PO QAM gabapentin 300 mg capsule 300 mg PO BID meclizine 25 mg tablet 25 mg PO DAILY PRN Vertigo (if needed) pantoprazole 40 mg tablet,delayed release 40 mg PO QAM Take evening before surgery quetiapine 25 mg tablet (Seroquel) 25 mg PO HS acetaminophen 650 mg tablet,extended release 650 mg PO Q8H PRN Pain (if needed) gabapentin 300 mg capsule 300 mg PO BID meclizine 25 mg tablet 25 mg PO DAILY PRN Vertigo (if needed) Other Notes If you have any questions please call us at [phone] or [phone] or [phone] or [phone]
--- NOTE | 2024-10-01 11:33 | Anesthesiology Consultation ---
Date of Service October 01, 2024 Assessment & Plan (1) Encounter for pre-operative examination: - Check BSG DOS - Infectious disease screening: Per assessment on 10/01/24- No known recent infectious disease contacts or current infectious disease symptoms. - Patient acceptable risk for surgery pending surgeon-ordered PCP preop evaluation (Dr. Arian Garcia/SUSIE Orta, appt 10/07). Chart Review Chart Review: Patient seen in Pre Admission Testing Teaching & Discussion Pre-Anesthesia Teaching/Discussion Notes: Instructed NPO after midnight before surgery,except medications with 15 cc of water. Medication instructions provided according to the PAT guidelines. History Surgery Operation Date: 10/23/24 07:45 Proposed Procedures p C4-C7 Anterior Cervical Discectomy and Fusion, Spinal Cord Monitoring - Adrian Ch DO Height/Weight Height: 6 ft 6 in Weight: 138.5 kg Allergies Allergy/AdvReac Type Severity Reaction Status Date / Time Penicillins Allergy Unknown Possible Verified 10/01/24 12:02 childhood reaction Medications Home Medications Medication Instructions Recorded Confirmed Last Taken allopurinol 300 mg tablet 300 mg PO QAM 11/15/22 09/21/24 12/13/22 09:00 amlodipine 5 mg tablet 5 mg PO QAM 11/15/22 09/21/24 12/13/22 09:00 calcium carbonate (Calcium 600) 600 mg PO DAILY 11/15/22 09/21/24 12/13/22 09:00 cholecalciferol (vitamin D3) 125 125 mcg PO DAILY 11/15/22 09/21/24 12/13/22 09:00 mcg (5,000 unit) tablet (Vitamin D3) cyanocobalamin (vitamin B-12) 2,500 mcg PO QAM 11/15/22 09/21/24 12/13/22 09:00 2,500 mcg tablet pediatric multivitamin no.7-folic 1 tab PO QAM 11/15/22 09/21/24 12/13/22 09:00 acid 100 mcg chewable tablet (Flintstones Tab Chew) quetiapine 25 mg tablet (Seroquel) 25 mg PO HS 11/15/22 09/21/24 12/13/22 22:00 acetaminophen 650 mg 650 mg PO Q8H PRN Pain 06/26/24 09/21/24 Unknown tablet,extended release duloxetine 30 mg capsule,delayed 30 mg PO QAM 06/26/24 09/21/24 Unknown release duloxetine 60 mg capsule,delayed 60 mg PO QAM 06/26/24 09/21/24 Unknown release gabapentin 300 mg capsule 300 mg PO BID 06/26/24 09/21/24 Unknown irbesartan 300 1 tab PO QAM 06/26/24 09/21/24 Unknown mg-hydrochlorothiazide 12.5 mg tablet meclizine 25 mg tablet 25 mg PO DAILY PRN Vertigo 06/26/24 09/21/24 Unknown meloxicam 7.5 mg tablet 7.5 mg PO .COMPLEX PRN Pain 06/26/24 09/21/24 Unknown pantoprazole 40 mg tablet,delayed 40 mg PO QAM 06/26/24 09/21/24 Unknown release buprenorphine 15 mcg/hour weekly 1 patch transdermal Q7D 09/21/24 09/21/24 Unknown transdermal patch doxycycline monohydrate 100 mg 100 mg PO BID PRN Other 09/21/24 09/21/24 Unknown tablet milk thistle 150 mg capsule 150 mg PO BID 09/21/24 09/21/24 Unknown Past Medical History Medical History Anxiety Arthritis Balance problem Follows with neuro r/t this > denies falls BPH (benign prostatic hyperplasia) DDD (degenerative disc disease) Cervical and lumbar spine Depression Fatty liver Gallstones GERD (gastroesophageal reflux disease) Controlled, stable H/O traumatic brain injury Mid , 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 football injuries History of COVID-2019 History of diabetes mellitus Hx of diabetes prior to gastric bypass, now controlled since surgery, no longer on meds Hx of gout No recent issues Hx of Lyme disease Dx approx 2021, treated Hx of neck disorder s/p injections and ablations Hx of vertigo Episodes a few times per year Hypertension IBS (irritable bowel syndrome) Kidney stones present, no surgery RAHEEL (obstructive sleep apnea) "Resolved" with weight loss after gastric bypass > no device Splenomegaly Exercise / Class Metabolic Activity II 4-5 Yardwork/Stairs/Walk up hill (one FS: No CP, no SOB) Past Family History Family History Father Diabetes Sister Diabetes Brother Diabetes Past Surgical History Surgical History History of colonoscopy History of cystoscopy History of lumbar surgery x2 History of total hip arthroplasty R/L Right NITHIN (12/14/22): SAB at L3-4 at [facility] Hx of abdominal surgery R/t bowel obstruction - 01/2022 Hx of gastric bypass Past Anesthesia History No Hx of Anesthesia Complications and No Family Hx of Anesthesia Complications History of PONV No Hx of PONV and Hx of Motion Sickness Social History Smoking Status: Never smoker Do You Dip or Chew Tobacco: No Hx Alcohol Use: Yes alcohol intake frequency: holidays/special occasions only Hx Substance Use: No substance use type: does not use Review of Systems Patient denies chest pain, shortness of breath, dyspnea on exertion, fever, chills, cough, wheezing, palpitations. Physical Exam Vital Signs BP 117/78 P 80 TEMP 98.1 SP02 96%RA RESP 16 Physical Full cervical extension range of motion. Full TMJ range of motion. TMD 3 finger breaths Mallampati Score III Dentition: intact Lungs: clear throughout to auscultation Cardiac: regular rate and rhythm, no murmurs noted Spine: normal Carotid arteries: negative bruit Extremities: no LE edema Lab Results Anesthesia Preop Results Results Anesthesia Widget: WBC 4.29 K/ul (4.8-10.8) L 10/01/24 Hgb 13.9 g/dl (14.0-18.0) L 10/01/24 Hct 41.7 % (42.0-52.0) L 10/01/24 Plt 189 K/uL (130-400) 10/01/24 Na 139 mmol/L (136-145) 10/01/24 K 4.1 mmol/L (3.5-5.1) 10/01/24 Cl 106 mmol/L (98-107) 10/01/24 CO2 27 mmol/L (21-32) 10/01/24 BUN 16 mg/dl (6-23) 10/01/24 Creat 0.99 mg/dl (0.6-1.4) 10/01/24 Glucose Level 75 mg/dl (70-99(Fasting)) 10/01/24 PT 11.3 Seconds (9.0-12.0) 10/01/24 PTT 27 Seconds (21-31) 10/01/24 INR 1.0 (0.9-1.1) 10/01/24 HA1c 5.3 % (4.5-5.6) 10/01/24 Urine Color Yellow 10/01/24 Urine Appearance Clear (Clear) 10/01/24 Urine pH 5.0 (4.5-7.5) 10/01/24 Urine Specific Almond 1.009 (1.000-1.030) 10/01/24 Urine Protein Negative (Negative) 10/01/24 Urine Glucose (UA) Negative (Negative) 10/01/24 Urine Ketones Negative (Negative) 10/01/24 Urine Blood Negative (Negative) 10/01/24 Urine Nitrite Negative (Negative) 10/01/24 Urine Bilirubin Negative (Negative) 10/01/24 Urine Urobilinogen Negative (Negative) 10/01/24 Urine Leukocyte Esterase Negative (Negative) 10/01/24 Blood Type A Positive 10/01/24 Antibody Screen NEGATIVE 10/01/24 Testing Electrocardiogram Date: 06/18/24 SR at 66bpm. "Normal ECG" Chest X-Ray Date: 10/01/24 FINDINGS: Heart size and pulmonary vasculature are normal. No effusion or consolidation. IMPRESSION: No acute findings.
[2024-10-23] MEDS: LR 15ML/HR IV SCH (07:00)
[2024-10-23] MEDS: VANCOMYCIN HCL 2,000 MG in SODIUM CHLORIDE 0.9% 500 ML IV SCH (07:01)
[2024-10-23] MEDS: LR 60ML/HR IV SCH (07:13)
[2024-10-23] MEDS: CeleBREX 200 MG CAP PO SCH (07:35)
[2024-10-23] MEDS: ACETAMINOPHEN 500 MG TAB PO SCH (07:35)
[2024-10-23] MEDS: GABAPENTIN 900 MG DOSE PO SCH (07:35)
[2024-10-23] MEDS ORDERED: MIDAZOLAM HCL 1 MG/ML 2ML VIAL ONE (08:26)
[2024-10-23] MEDS ORDERED: fentaNYL citrate PF 100 MCG/2 ML VIAL ONE (08:26)
[2024-10-23] MEDS ORDERED: LIDOCAINE 2% 2 ML VIAL/AMP(20MG/ML) INFIL ONE ×2 (08:30)
[2024-10-23] MEDS ORDERED: ROCURONIUM BROMIDE 10 MG/ML 5 ML VIAL IV ONE ×3 (08:31→10:51)
[2024-10-23] MEDS ORDERED: PROPOFOL IV EMULSION 10 MG/ML 20 ML VIAL IV ONE ×2 (08:31→08:33)
[2024-10-23] MEDS ORDERED: ONDANSETRON INJ 2 MG/ML 2 ML VIAL ONE (08:31)
[2024-10-23] MEDS ORDERED: DEXAMETHASONE SOD INJ 4 MG/ML VIAL ONE (08:31)
[2024-10-23] MEDS ORDERED: ATROPINE SULFATE 0.1 MG/ML 10ML SYR IV PRN (08:43)
[2024-10-23] MEDS ORDERED: ePHEDrine sulfate 50 MG/ML AMP IV PRN (08:43)
[2024-10-23] MEDS ORDERED: ONDANSETRON INJ 2 MG/ML 2 ML VIAL IV PRN ×2 (08:43→13:32)
[2024-10-23] MEDS ORDERED: PROMETHAZINE HCL 6.25 MG in SODIUM CHLORIDE 0.9% 50 ML IV PRN (08:43)
--- NOTE | 2024-10-23 09:00 | History & Physical Bridge Note ---
Date of Service October 23, 2024 History & Physical Bridge Note I have examined the patient, reviewed the History & Physical and in the interval since the performance of the History & Physical I have noted the following changes of clinical significance: no changes noted
--- NOTE | 2024-10-23 09:02 | History & Physical Report ---
Date of Service October 23, 2024 Assessment & Plan (1) Cervical spondylosis with radiculopathy: Plan: Anterior cervical discectomy and fusion C4-C7 History of Present Illness Chief Complaint: Neck and arm pain Primary Care Provider: Arian Garcia This is a 54-year-old male who presents chronic persistent neck and arm pain of failing course of nonoperative care is here for surgical invention. Allergies Allergy/AdvReac Type Severity Reaction Status Date / Time No Known Allergies Allergy Verified 10/23/24 07:06 Home Medications Medication Instructions Recorded Confirmed Type allopurinol 300 mg tablet 300 mg PO QAM 11/15/22 10/23/24 History amlodipine 5 mg tablet 5 mg PO QAM 11/15/22 10/23/24 History calcium carbonate (Calcium 600) 600 mg PO DAILY 11/15/22 10/23/24 History cholecalciferol (vitamin D3) 125 125 mcg PO DAILY 11/15/22 10/23/24 History mcg (5,000 unit) tablet (Vitamin D3) cyanocobalamin (vitamin B-12) 2,500 mcg PO QAM 11/15/22 10/23/24 History 2,500 mcg tablet pediatric multivitamin no.7-folic 1 tab PO QAM 11/15/22 10/23/24 History acid 100 mcg chewable tablet (Flintstones Tab Chew) quetiapine 25 mg tablet (Seroquel) 50 mg PO HS 11/15/22 10/23/24 History acetaminophen 650 mg 650 mg PO Q8H PRN Pain 06/26/24 10/23/24 History tablet,extended release duloxetine 30 mg capsule,delayed 30 mg PO QAM 06/26/24 10/23/24 History release duloxetine 60 mg capsule,delayed 60 mg PO QAM 06/26/24 10/23/24 History release gabapentin 300 mg capsule 300 mg PO BID 06/26/24 10/23/24 History irbesartan 300 1 tab PO QAM 06/26/24 10/23/24 History mg-hydrochlorothiazide 12.5 mg tablet meclizine 25 mg tablet 25 mg PO DAILY PRN Vertigo 06/26/24 10/23/24 History meloxicam 7.5 mg tablet 7.5 mg PO .COMPLEX PRN Pain 06/26/24 10/23/24 History pantoprazole 40 mg tablet,delayed 40 mg PO QAM 06/26/24 10/23/24 History release buprenorphine 15 mcg/hour weekly 1 patch transdermal Q7D 09/21/24 10/23/24 History transdermal patch doxycycline monohydrate 100 mg 100 mg PO BID PRN Other 09/21/24 10/23/24 History tablet milk thistle 150 mg capsule 150 mg PO BID 09/21/24 10/23/24 History Past Med/Surg History Problem List (Updated 10/23/24 @ 09:02 by Adrian Ch DO) Cervical spondylosis with radiculopathy Memory loss Ataxia Headache Encounter for pre-operative examination Degenerative joint disease of right hip Medical History Anxiety Arthritis Balance problem Follows with neuro r/t this > denies falls BPH (benign prostatic hyperplasia) DDD (degenerative disc disease) Cervical and lumbar spine Depression Fatty liver Gallstones GERD (gastroesophageal reflux disease) Controlled, stable H/O traumatic brain injury Mid , r/t old football injuries History of COVID-2019 History of diabetes mellitus Hx of diabetes prior to gastric bypass, now controlled since surgery, no longer on meds Hx of gout No recent issues Hx of Lyme disease Dx approx 2021, treated Hx of neck disorder s/p injections and ablations Hx of vertigo Episodes a few times per year Hypertension IBS (irritable bowel syndrome) Kidney stones present, no surgery RAHEEL (obstructive sleep apnea) "Resolved" with weight loss after gastric bypass > no device Splenomegaly Surgical History History of colonoscopy History of cystoscopy History of lumbar surgery x2 History of total hip arthroplasty R/L Right NITHIN (12/14/22): SAB at L3-4 at [facility] Hx of abdominal surgery R/t bowel obstruction - 01/2022 Hx of gastric bypass Family History Father Diabetes Sister Diabetes Brother Diabetes Social History Smoking Status: Never smoker Second Hand Exposure: No; Do You Dip or Chew Tobacco: No; Tobacco Cessation Education Requested by Patient: No Hx Alcohol Use: Yes Hx Substance Use: No Preferred Language: [place] Communication Ability: Effective Shuttle Driver Required: No Beliefs That Will Affect Care: None Current Living Situation: Spouse Other Information That Helps Us Care for You: No Feels Safe at Home: Yes Safety Concerns: Feels Safe At This Time Assistive Devices: Glasses Physical Exam Physical Exam: Patient is alert and oriented Heart regular rhythm lungs clear Results & Data Results & Data Vital Signs (Past 12 Hours) Vital Signs Temp Pulse Resp BP Pulse Ox O2 Del Method 10/23/24 07:00 36.9 C 72 18 146/89 H 95 Room Air
[2024-10-23] MEDS ORDERED: KETAMINE HCL 10MG/ML SYR ONE (09:17)
[2024-10-23] MEDS ORDERED: PHENYLEPHRINE 100MCG/ML 10ML SYR IV ONE (10:12)
[2024-10-23] MEDS: ceFAZolin 330 MG/ML 1 GM VIAL ONE (10:20)
[2024-10-23] MEDS ORDERED: PROPOFOL IV EMULSION 10 MG/ML 100 ML VIAL IV ONE (10:26)
[2024-10-23] MEDS ORDERED: DexMEDEtomidine HCL IV 100 MCG/ML VIAL IV ONE (10:55)
[2024-10-23] MEDS ORDERED: SUGAMMADEX SODIUM 200 MG/2 ML VIAL IV ONE (11:15)
[2024-10-23] MEDS: FLOSEAL HEMOSTATIC MATRIX 10ML TOP ONE (11:19)
--- NOTE | 2024-10-23 11:26 | Operative Report ---
Post Operative Report Pre & Post Diagnosis Operation Date: 10/23/24 09:25 Pre-Op Diagnosis: Cervical spondylosis with radiculopathy Post-Op Diagnosis: Cervical spondylosis with radiculopathy I identified the patient and participated in the time-out.: Yes Procedure Operation Date: 10/23/24 09:25 Actual Procedures #1 anterior cervical discectomy with bilateral foraminotomies C4-C5, C5-C6 and C6-C7. #2 anterior cervical arthrodesis C4-C5, C5-C6 C6-C7. #3 placement of Spira 8 mm cage C4-C5, 8 mm cage C5-C6 and 9 mm cage C6-C7. All cages filled with os design bone graft. #4 placement of K2 and plate and screws from C4-C7. Surgeon Adrian Ch, Graining Press Operator Elba Hair Estimated Blood Loss 50 Findings Consistent with Post-Op Diagnosis Specimens None Indications This is a 54-year-old male presents above-mentioned diagnosis after failing course of nonoperative care is here for surgical invention. Description of Procedure Patient was met with identified informed consent obtained. Patient was then taken to the operative suite underwent intubation placed in a supine position on the Ayad table with head Holbrook lindo. All bony prominences well-padded eyes inspected to ensure no external precipice upon them. This point the anterior cervical spine was prepped and draped no sterile fashion. The assistance of fluoroscopy identified the C5-C6 disc base and a transverse incision was placed along the right anterior aspect of the cervical spine overlying his region. Blunt dissection with the assistance of bipolar cautery performed down to expose the anterior cervical spine from C4-C7. This obtained retractors then placed. I then performed a complete discectomy of C4-C5 out to the uncovertebral joints bilaterally. [place] distracting pins utilized to assist in visualization. Removed all posterior annular fibers longitudinal ligament bilateral foraminotomies performed. Endplates burred to subcortical bleeding bone and a 8 mm spiral cage filled with os design bone graft tapped in position. Then proceeded to C5-C6. Again distracting pins utilized. Discectomy performed up to the uncovertebral joints bilaterally. Removed all posterior annular fibers longitudinal ligament bilateral foraminotomies were performed. Endplates burred to subcortical bleeding bone and an 8 mm spiral cage filled with os design bone graft tapped in position. Then proceeded to C6- C7. Again discectomy performed up to the uncovertebral joints bilaterally. Lanett distracting pins utilized. Removed all posterior annular fibers longitudinal ligament bilateral foraminotomies performed. Endplates burred to subcortical bleeding bone. A 9 mm spiral cage filled with os design bone graft tapped in position. Distracting and pressors removed. All anterior osteophytes burred to smooth cortical surface. K2 M plate and screws and then applied with the assistance of fluoroscopy. The incision was then copiously irrigated explored to ensure no damage to surrounding structures remaining bleeding. 10 round NIDA drain inserted. The incision was then closed with 2 Vicryl in the fashion of 4 Monocryl for final skin closure. Steri-Strips sterile dressing placed. Patient waken taken to PACU stable condition. Please note spinal cord monitoring was utilized throughout the procedure no changes noted. Elba Hair was present at the entire surgery and while the patient positioning complex portion of the surgery and final skin closure. I attest to the content of the Intraoperative Record and any orders documented therein. Any exceptions are noted below.
[2024-10-23] MEDS: fentaNYL citrate PF 100 MCG/2 ML VIAL IV PRN (11:47)
[2024-10-23] MEDS: HYDROmorphone INJ 2 MG/ML SYR/VIAL IV PRN (12:25)
--- NOTE | 2024-10-23 13:00 | Anesthesiology Progress Note ---
Date of Service October 23, 2024 Anesthesia Post Procedure Vital Signs Vital Signs: Temp Pulse Resp BP Pulse Ox O2 Del Method O2 Flow Rate 10/23/24 12:55 36.1 C L 73 15 147/97 H 96 Room Air 10/23/24 12:45 72 15 130/93 95 Room Air 10/23/24 12:35 70 16 135/95 96 Room Air 10/23/24 12:25 65 12 141/92 H 96 Room Air 10/23/24 12:15 68 15 134/96 93 Room Air 10/23/24 12:05 70 12 137/98 99 Oxymask 2 10/23/24 11:55 67 13 138/99 100 Oxymask 7 10/23/24 11:45 63 12 131/94 99 Oxymask 7 10/23/24 11:39 36.1 C L 64 18 142/99 H 98 Oxymask 7 10/23/24 07:00 36.9 C 72 18 146/89 H 95 Room Air Pain Intensity Neck: Pain Intensity: 7 Back: Pain Intensity: 5 Left Knee: Pain Intensity: 5 Right Hip: Pain Intensity: 5 Transfer of Care Handoff Completed per policy Notes Mental Status: alert / awake / arousable and participated in evaluation Patient Amnestic to Procedure: Yes Nausea / Vomiting: adequately controlled Pain: adequately controlled Airway Patency, RR, SpO2: stable & adequate BP & HR: stable & adequate Hydration State: stable & adequate Anesthetic Complications: no major complications apparent and Pt Satisfied with anesthetic care
[2024-10-23] MEDS ORDERED: ACETAMINOPHEN 500 MG TAB PO PRN (13:32)
[2024-10-23] MEDS ORDERED: MECLIZINE HCL 25 MG TAB PO PRN (13:32)
[2024-10-23] MEDS ORDERED: SOD PHOSPHATE/SOD BIPHOSPHATE ENEMA 132 ML BTL PR PRN (13:32)
[2024-10-23] MEDS ORDERED: LORazepam 2 MG/1 ML VIAL IV PRN (13:32)
[2024-10-23] MEDS ORDERED: METOCLOPRAMIDE HCL INJ 5 MG/ML 2 ML VIAL IV PRN (13:32)
[2024-10-23] MEDS ORDERED: ACETAMINOPHEN 1,000 MG/100 ML VIAL IV PRN (13:32)
[2024-10-23] MEDS ORDERED: DO NOT ADMINISTER FLU VACCINE PRN (13:32)
[2024-10-23] MEDS ORDERED: diphenhydrAMINE Capsule 25 MG CAP PO PRN (13:32)
[2024-10-23] MEDS ORDERED: ALUMINUM/MAGNESIUM SUSP 30 ML UDC PO PRN (13:32)
[2024-10-23] MEDS ORDERED: hydrOXYzine HCl 25 MG TAB PO PRN (13:32)
[2024-10-23] MEDS ORDERED: PROMETHAZINE 12.5 MG/50.5 ML BAG IV PRN (13:32)
[2024-10-23] MEDS ORDERED: ONDANSETRON 4 MG OD TAB PO PRN (13:32)
[2024-10-23] MEDS ORDERED: LORazepam 0.5 MG TAB PO PRN (13:32)
[2024-10-23] MEDS ORDERED: MAGNESIUM HYDROXIDE SUSP 30 ML UDC PO PRN (13:32)
[2024-10-23] MEDS ORDERED: NALOXONE HCL 0.4 MG/1 ML VIAL/CARP IV PRN (13:32)
[2024-10-23] MEDS ORDERED: RACEPINEPHRINE 2.25% NEBU SOLN 0.5 ML VIAL INH PRN (13:32)
[2024-10-23] MEDS ORDERED: bisacodyL 10 MG SUPP PR PRN (13:32)
[2024-10-23] MEDS ORDERED: DO NOT ADMINISTER PNEUMOCOCCAL VACCINE PRN (13:32)
[2024-10-23] MEDS ORDERED: FAMOTIDINE 20 MG TAB PO PRN (13:32)
[2024-10-23] MEDS ORDERED: dexAMETHasone 8 MG in SYRINGE 0 ML IV PRN (13:32)
[2024-10-23] MEDS ORDERED: traMADol HCL 50 MG TABLET PO PRN (13:32)
--- NOTE | 2024-10-23 13:53 | Fluoroscopy Report ---
FL cervical 2-3V CLINICAL HISTORY: C4-C7 ANTERIOR DISCECTOMY/FUSION COMPARISON STUDY: None FLUOROSCOPY TIME: 9 seconds FLUOROSCOPY IMAGES: 3 EXPOSURE DOSE: 2.3 mGy FINDINGS: Fluoroscopy was provided for lower cervical instrument fusion. IMPRESSION: Intraoperative fluoroscopy. ACT 112: Negative or not required by law. Electronically signed by: Reinaldo Witt M.D. 10/23/2024 1:51 PM
[2024-10-23] MEDS: oxyCODONE HCL IR 5 MG TAB (IMMEDIATE RELEASE) PO PRN (17:48)
[2024-10-23] MEDS: ceFAZolin 2000MG 2,000 MG/15 ML SYR IV SCH (17:50)
[2024-10-23] MEDS: DOCUSATE SODIUM/SENNA 50/8.6MG TAB PO SCH (20:20)
[2024-10-23] MEDS: HYDROmorphone INJ 1 MG/ML SYRINGE IV PRN (20:24)
[2024-10-23] MEDS: GABAPENTIN 300 MG CAP PO SCH (22:00)
[2024-10-23] MEDS: QUEtiapine FUMARATE 25 MG TABLET PO SCH (22:00)
[2024-10-24] MEDS: POLYETHYLENE (MIRALAX) 17 GM PACK PO SCH (06:11)
[2024-10-24 07:19] VITALS: TEMP 97.9
[2024-10-24 07:22] VITALS: RESP 16
[2024-10-24] MEDS: dexAMETHasone 6 MG in SYRINGE 0 ML IV SCH (08:34)
[2024-10-24] MEDS: LOSARTAN/HCTZ 50/12.5MG TAB PO SCH (08:34)
[2024-10-24] MEDS: amLODIPine BESYLATE 5 MG TAB PO SCH (08:35)
[2024-10-24] MEDS: DULoxetine HCL 30 MG CAP PO SCH (08:35)
[2024-10-24] MEDS: CALCIUM CARBONATE 1250MG TAB PO SCH (08:35)
[2024-10-24] MEDS: allopurinoL 300 MG TAB PO SCH (08:35)
[2024-10-24] MEDS: PANTOprazole 40 MG TAB PO SCH (08:35)
[2024-10-24] MEDS: LOSARTAN POTASSIUM 50 MG TAB PO SCH (08:36)
[2024-10-24] MEDS: DULoxetine HCL 60 MG CAP PO SCH (08:36)
[2024-10-24] MEDS: BUPRENORPHINE 10 MCG/HR TDSY TD SCH (08:53)
[2024-10-24] MEDS: BUPRENORPHINE 5 MCG/HR TDSY TD SCH (08:53)
[2024-10-24] MEDS ORDERED: LOSARTAN POTASSIUM 50 MG TAB PO SCH (09:00)
[2024-10-24 11:09] VITALS: BP 167/92; PULSE 75; O2SAT 97
[2024-10-24] MEDS: HYDROmorphone INJ 0.5 MG/0.5 ML SYR IV PRN (11:22)
--- NOTE | 2024-10-24 11:57 | Discharge Summary ---
Date of Service October 24, 2024 Admission HPI Per Admitting Provider This is a 54-year-old male who presents chronic persistent neck and arm pain of failing course of nonoperative care is here for surgical invention. Principal Diagnosis Cervical spondylosis with radiculopathy Discharge Data Allergies Allergy/AdvReac Type Severity Reaction Status Date / Time No Known Allergies Allergy Verified 10/23/24 07:06 Procedures Performed Operation Date: 10/23/24 09:25 Actual Procedures p C4-C7 Anterior Cervical Discectomy and Fusion, Spinal Cord Monitoring(Not Applicable) - Adrian Ch DO Ordered Studies 10/23/24 [place] cervical 2-3V Routine Hospital Course (1) Cervical spondylosis with radiculopathy: Patient underwent multilevel anterior cervical discectomy and fusion trial as well as taken orthopedic for postoperative. Postop day #1 he was swallowing well. No hoarseness. Arm symptoms markedly improved. Excellent strength testing. Simply discharged home. Discharge orders and instructions from the chart for further review. Total Time Total Time Spent Total Time Spent (In Minutes): 20 minutes Discharge Plan Discharge Items Patient Disposition: Home - Self-Care Reason For Visit: Cervical Spondylosis, Cervical Disc Disease, [place] Discharge Diagnosis: cervical spondylosis with radiculopathy Activity: As commented below Non-emergency contact: Primary Care Provider Call non-emergency contact if: you have any medication questions Follow-up/Referrals: Arian Garcia [Primary Care Provider] - Diet: Regular Addtl Attending Provider Instructions: ACTIVITY RECOMMENDATIONS: SELF CARE INSTRUCTIONS AFTER CERVICAL FUSIONS 1. No smoking. Smoking drastically decreases the chance of a solid fusion. 2. No bending, lifting more than 5 pounds, or twisting (roll like a log when turning in bed). 3. You may shower 3 days after surgery. Thoroughly dry wound. Do not soak in the tub. 4. Cervical collar: Must be worn at all times including sleeping. You may remove the brace only to bath, eat and if you are sitting in a recliner. 5. Please walk as much as you can for exercise. Gradually increase the distance that you walk as your endurance increases. 6. You may return to previous diet. SPECIAL CARE INSTRUCTIONS: VERY IMPORTANT TO READ AND REVIEW A. Do not take any anti-inflammatory medications (i.e. Indocin, Advil, Aspirin, Naprosyn, Aleve, Motrin, etc.) as these may inhibit the chance of a solid fusion. Tylenol is okay to take. B. Your surgical incision has been closed with a cosmetic suture under the skin that will dissolve in about 6 weeks. In 14 days, you can use a pair of clean scissors and cut the suture that is left outside of the skin at the ends of your incision. C. Complications are uncommon, but please contact us if you have any signs or symptoms of: 1. wound infection (fever higher than 102.5 degrees F, redness, separation of wound, drainage, or increasing pain from the incision) 2. blood clots in legs (pain, swelling, redness and warmth in legs) 3. urinary tract infection (fever higher than 102.5 degrees, burning upon urination or increased frequency of urination) 4. nerve problems (inability to walk on your toes or heels, numbness, loss of bowel or bladder control) 5. any other symptoms that concern you. D. Please call the office at if you have any concerns or questions about your operation or recovery. MANAGING PAIN AFTER SPINAL SURGERY 1. Narcotic medication is intended for short-term use and will be provided for surgical pain. Surgical pain usually lasts for a period of 4-6 weeks. Narcotic medication includes Percocet, Vicodin, Darvocet, Tylenol #3 or Lortab. 2. Longer-term pain is more appropriately treated with non-narcotic medication such as Tylenol ES. 3. Muscle spasm is not appropriately treated with narcotics. Muscle relaxers such as Soma, Flexeril or Skelaxin can be used along with Tylenol ES. 4. Remember that we all live with some "aches and pains". This is not unusual or uncommon after an injury or as we get older. 5. We will provide appropriate medication within the normal guidelines of their prescribed use. We will also be very cautious and aware of potential abuse and extended duration of patients' medication needs. 6. Please allow 2-3 days to process refills. Prescriptions will not be mailed but must be picked up at the office. FOLLOW UP VISIT: Keep your scheduled follow-up appointment. Any questions, please call the office at . Pending Studies at Discharge: No [facility]Alone [facility], Smoking Cessation Medications and DC Order Prescriptions: New tramadol 50 mg tablet 50 mg PO Q6H PRN (Reason: pain, moderate) Qty: 30 0RF oxycodone 5 mg tablet 5 mg PO Q6H PRN (Reason: pain) Qty: 30 0RF Continued duloxetine 60 mg capsule,delayed release(DR/EC) 60 mg PO QAM Patient Comments: 90mg total duloxetine 30 mg capsule,delayed release(DR/EC) 30 mg PO QAM Rx Instructions: 90mg total pantoprazole 40 mg tablet,delayed release (DR/EC) 40 mg PO QAM irbesartan-hydrochlorothiazide 300-12.5 mg tablet 1 tab PO QAM meclizine 25 mg tablet 25 mg PO DAILY PRN (Reason: Vertigo) acetaminophen 650 mg tablet extended release 650 mg PO Q8H PRN (Reason: Pain) gabapentin 300 mg capsule 300 mg PO BID amlodipine 5 mg Tablet 5 mg PO QAM calcium carbonate [Calcium 600] 600 mg calcium (1,500 mg) Tablet 600 mg PO DAILY allopurinol 300 mg Tablet 300 mg PO QAM Flintstones Tab Chew 100 mcg Tablet,Chewable 1 tab PO QAM cholecalciferol (vitamin D3) [Vitamin D3] 125 mcg (5,000 unit) Tablet 125 mcg PO DAILY cyanocobalamin (vitamin B-12) 2,500 mcg Tablet 2,500 mcg PO QAM quetiapine [Seroquel] 25 mg Tablet 50 mg PO HS doxycycline monohydrate 100 mg Tablet 100 mg PO BID PRN (Reason: Other) Patient Comments: prn for Lyme flare up buprenorphine 15 mcg/hour Patch Weekly 1 patch TRANSDERMAL Q7D Patient Comments: changes on tuesday milk thistle 150 mg Capsule 150 mg PO BID Rx Instructions: give with meal/snack No Action meloxicam 7.5 mg tablet 7.5 mg PO .COMPLEX PRN (Reason: Pain) Rx Instructions: 3x/week Discharge Orders: Discharge Order (Routine); Ordered 10/24/24 Ordered By: Adrian Ch Admission Data Admit Date/Time: 10/23/24 11:30 Attending Provider: Adrian Ch Admit Provider: Adrian Ch Primary Care Provider: Arian Garcia Other Interventions: Discharge Summary Assessment (RN) Last Done: 10/24/24 09:56
== END 2024-10-24 11:50 | disposition home or self-care (01) ==
LOC: EDINP 06:43 → ASU 06:43 → 3E 13:22